=== PATIENT | female | born 1990 | race American Indian/Alaskan Native ===

== ENCOUNTER 2018-07-02 01:46 | Inpatient (IN) | payer MEDICAID ==
[2018-07-02] MEDS ORDERED: MAGNESIUM SULFATE 40GM/1000ML 40 GM/1,000 ML BAG IV ONE (02:02)
[2018-07-02] MEDS ORDERED: LACTATED RINGERS 1,000 ML ONE (02:02)
[2018-07-02] MEDS: LACTATED RINGERS 1,000 ML IV SCH (02:10)
[2018-07-02] MEDS ORDERED: BENADRYL PO PRN (02:25)
[2018-07-02] MEDS ORDERED: POLYCILLIN/NS 2 GM/100 ML 2 GM/100 ML BAG IV ONE (02:25)
[2018-07-02] MEDS ORDERED: SUBLIMAZE IV ONE (02:25)
[2018-07-02] MEDS ORDERED: MYLICON PO PRN (02:25)
[2018-07-02] MEDS ORDERED: AMBIEN PO PRN (02:25)
[2018-07-02] MEDS ORDERED: ZOFRAN IV PRN (02:25)
[2018-07-02] MEDS ORDERED: MILK OF MAGNESIA PO PRN (02:25)
[2018-07-02] MEDS ORDERED: COLACE PO PRN (02:25)
[2018-07-02] MEDS ORDERED: TYLENOL PO PRN (02:25)
[2018-07-02] MEDS ORDERED: GUAIFENESIN DM SYRUP PO PRN (02:25)
[2018-07-02] MEDS ORDERED: SUBLIMAZE ONE (02:32)
--- NOTE | 2018-07-02 02:46 | History and Physical Report ---
History of Present Illness Date of examination: 07/02/18 Date of admission: 07/02/18 01:46 Chief complaint: Labor History of present illness: The 28-year-old female [address] para [address] Moises Means has been evaluated at the [facility]. She's known twin gestation with an EDC of 08/14/2018 that places her at 33 weeks and 6 days gestation. She gives a history of contractions that started yesterday morning and became less worse throughout the day. She presented she [facility] for evaluation where she was noted initially to be 2 cm. During her evaluation she progressed to 3-4 cm. Because [place] is a level II nursery and her provider has privileges here at [facility], after consultation with her traffic controller cable the decision was made to transfer her for further management of labor. 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: denies: abnormal PAP smear, chlamydia, gonorrhea, hepatitis B, hepatitis C, herpes, HIV, syphilis, trichomonas Social history: no significant social history - Obstetrical History Expected Date of Delivery: 08/14/18 Actual Gestation: 33 Week(s) 6 Day(s) : 3 Medications and Allergies Allergies Allergy/AdvReac Type Severity Reaction Status Date / Time No Known Allergies Allergy Verified 07/02/18 02:37 Active Meds: Active Medications Acetaminophen (Tylenol) 650 mg PO Q6H PRN PRN Reason: Pain MILD(1-3)/Fever >100.5/CHAVIRA Betamethasone Acet/Betameth SodPhos (Celestone Soluspan) 12 mg IM Q24HR MILTON Stop: 07/03/18 22:31 Diphenhydramine HCl (Benadryl) 25 mg PO Q6H PRN PRN Reason: Itching Docusate Sodium (Colace) 100 mg PO Q12H PRN PRN Reason: Constipation Guaifenesin (Guaifenesin Dm Syrup) 10 ml PO Q6H PRN PRN Reason: Cough Ampicillin Sodium (Ampicillin/Ns 1 Gm/50 Ml) 1 gm in 50 mls @ 100 mls/hr IV Q4HR MILTON; Protocol Ampicillin Sodium (Polycillin/Ns 2 Gm/100 Ml) 2 gm in 100 mls @ 100 mls/hr IV ONCE ONE; Protocol Stop: 07/02/18 03:24 Lactated Ringer's (Lactated Ringers) 1,000 mls @ 125 mls/hr IV DIRECT MILTON Magnesium Sulfate (Magnesium Sulfate 40gm/1000ml) 40 gm in 1,000 mls @ 50 mls/ hr IV DIRECT MILTON Magnesium Hydroxide (Milk Of Magnesia) 30 ml PO QHS PRN PRN Reason: Laxative Effect Multivitamins/Iron/Calcium ( Vitamin) 1 each PO QDAY MILTON Ondansetron HCl (Zofran) 4 mg IV Q6H PRN PRN Reason: Nausea And Vomiting Simethicone (Mylicon) 80 mg PO Q6H PRN PRN Reason: Gas pain Zolpidem Tartrate (Ambien) 10 mg PO ONCE PRN PRN Reason: Sleep Review of Systems All systems: negative Genitourinary: contractions - Vital Signs Vital signs: Vital Signs Temp Pulse Resp BP Pulse Ox 97.7 F 105 H 18 120/68 96 07/02/18 02:37 07/02/18 02:37 07/02/18 02:37 07/02/18 02:37 07/02/18 02:37 Temp Pulse Resp BP Pulse Ox 97.7 F 105 H 18 120/68 96 07/02/18 02:37 07/02/18 02:37 07/02/18 02:37 07/02/18 02:37 07/02/18 02:37 - Physical Exam Breasts: Positive: deferred Cardiovascular: Regular rate Lungs: Positive: Clear to auscultation, Normal air movement Abdomen: Positive: soft. Negative: tenderness Vulva: both: normal - Obstetrical FHR: category 1 Uterine Contraction Monitor Mode: External Cervical Dilatation: 3.5 Cervical Effacement Percentage: 50 station: -1 Uterine Contraction Pattern: Irregular Results All other labs normal. Assessment and Plan - Patient Problems (1) 33 weeks gestation of Current Visit: Yes Status: Acute (2) Twin gestation in third trimester Current Visit: Yes Status: Acute Plan to address problem: Continue MgSO4. Will attempt to obtain the US report from [facility] Will give 2nd steriod dose tonight (3) labor in third trimester Current Visit: Yes Status: Acute
[2018-07-02] MEDS ORDERED: MAGNESIUM SULFATE 40GM/1000ML 40 GM/1,000 ML BAG IV SCH (03:00)
[2018-07-02 03:38] LABS: Hematocrit 28.8 % (30.3-42.9); Hemoglobin 9.1 gm/dl (10.1-14.3); Mean Corpuscular HGB Conc 32 % (30-34); Platelet Count 346 K/mm3 (140-440)
[2018-07-02 03:40] LABS: Mean Corpuscular Hemoglobin 22 pg (28-32); Mean Corpuscular Volume 68 fl (79-97); Red Cell Distribution Width 24.7 % (13.2-15.2)
[2018-07-02] MEDS ORDERED: BRETHINE SUB-Q PRN (04:25)
[2018-07-02 04:30] LABS: Hepatitis C Virus Antibody Non-Reactive (NonReactive)
[2018-07-02] MEDS ORDERED: BRETHINE ONE (04:31)
[2018-07-02] MEDS ORDERED: STADOL IV ONE (05:00)
[2018-07-02] MEDS ORDERED: STADOL ONE (05:11)
[2018-07-02 05:21] LABS: Rubella IgG Antibody Immune (Immune)
[2018-07-02] MEDS: AMPICILLIN/NS 1 GM/50 ML 1 GM/50 ML BAG IV SCH ×6 (05:21→23:00)
[2018-07-02] MEDS ORDERED: STADOL IV PRN (05:30)
[2018-07-02] MEDS: PRENATAL VITAMIN PO SCH (10:28)
--- NOTE | 2018-07-02 13:25 | Event Note ---
Date: 07/02/18 S: 28yo at 33 6/7weeks, twin gestation, undergoing evaluation for labor s/p betamethasone x 1, next dose 10pm. On magnesium sulfate for neuroprotection and ampicillin for GBS prophylaxis. Currently being evaluated for spontaneous rupture of membranes. She complained of a leakage of fluid and nitrazine was equivocal. Cultures for Gonorrhea, Chlamydia were collected and GBS cultures are pending. O: Cervix /70/-2 FHT 130s Twin A 130 Twin B Category I - both twins A Twin gestation Category I FHT - both twins Malpresentation - Twin B Anemia of Leukocytosis - likely due to betamethasone Anemia of - asymptomatic P Evaluate for SROM - repeat US ZOHREH Twin A/B. Continue magnesium sulfate. Next betamethasone due ~10pm. Monitor for cervical change. Consented for primary section - consent in chart. If SROM confirmed or cervical change-active labor will proceed to primary section.
--- NOTE | 2018-07-02 16:04 | Ultrasound Report ---
FINAL REPORT PROCEDURE: US OB LIMITED TECHNIQUE: Real-time limited sonographic examination was performed for evaluation of amniotic fluid volume for each fetus with image documentation (1 or more fetuses). CPT 66767 HISTORY: Check ZOHREH twin A, twin B COMPARISON: No prior studies are available for comparison. FINDINGS: FETUS A Position: Cephalic. Amniotic fluid volume: Deepest vertical pocket measures 3.7 centimeters Heart rate and rhythm: 127 BPM, Regular . Fetus B Position: Transverse, head at the maternal left. Amniotic fluid volume: Deepest vertical pocket measures 6.0 centimeters Heart rate and rhythm: 135 BPM, Regular . IMPRESSION: Twin A deepest vertical pocket of amniotic fluid measures 3.7 centimeters. Twin B deepest vertical pocket of amniotic fluid measures 6.0 centimeters.
[2018-07-02] MEDS ORDERED: PEPCID IV SCH (20:30)
[2018-07-02] MEDS ORDERED: CELESTONE SOLUSPAN IM ONE ×2 (22:59→23:30)
[2018-07-03] MEDS: AMPICILLIN/NS 1 GM/50 ML 1 GM/50 ML BAG IV SCH ×4 (02:37→14:33)
--- NOTE | 2018-07-03 07:04 | Event Note ---
Date: 07/03/18 HOSPITAL DAY #2 35yo , 34 weeks, surrogate /IVF, twin , labor s/p bethamethsone, magnesium sulfate. Dilated 4cm Stable - contractions subsided. O: Twin A FHT 120 Twin B FHT 120 One variable decel Twin A ~420am A PTL/twins P Spoke with Dr. Montalvo - maternal medicine, [facility]. He was able to find US of patient confirming SHMUEL 08/14/18, 34 weeks. His recommendation is if patient is in labor to proceed to delivery, in this case, due to malpresentation via section. Repeat US for ZOHREH today in light of complaint of loss of fluid, equivocal nitrazine strip.
[2018-07-03 07:36] LABS: Hematocrit 25.5 % (30.3-42.9); Hemoglobin 7.9 gm/dl (10.1-14.3); Mean Corpuscular HGB Conc 31 % (30-34); Platelet Count 352 K/mm3 (140-440); Red Blood Count 3.71 M/mm3 (3.65-5.03)
[2018-07-03 07:43] LABS: Mean Corpuscular Hemoglobin 21 pg (28-32); Mean Corpuscular Volume 69 fl (79-97); Red Cell Distribution Width 25.3 % (13.2-15.2)
[2018-07-03] MEDS: LACTATED RINGERS 1,000 ML IV SCH ×2 (07:53→17:42)
--- NOTE | 2018-07-03 09:36 | Ultrasound Report ---
FINAL REPORT EXAM: US OB LIMITED HISTORY: ZOHREH-twins TECHNIQUE: Transabdominal OB ultrasound. PRIORS: None currently available. FINDINGS: Twin intrauterine pregnancies. TWIN A: heart rate: 137 BPM. Amniotic fluid index: Largest vertical pocket measures 2.4 cm. Within normal limits. Movement of the extremities and heart noted. TWIN B: heart rate: 141 BPM. Amniotic fluid index: Largest vertical pocket measures 7.2 cm. Within normal limits. IMPRESSION: Twin live intrauterine pregnancies.
[2018-07-03] MEDS ORDERED: CELESTONE SOLUSPAN IM SCH (22:30)
[2018-07-03] MEDS ORDERED: NACL 0.9% 500 ML 500 ML IV ONE (23:56)
--- NOTE | 2018-07-04 00:16 | Progress Note ---
Assessment and Plan - Patient Problems (1) labor in third trimester Current Visit: Yes Status: Acute Plan to address problem: No cervical change-4cm FHT reassuring Expectant management. If signs of twin distress or progression of labor will proceed to primary section Consent signed and in chart. Subjective - Subjective Date of service: 07/04/18 Patient reports: other (States loss of fluid stopped after de la o catheter removed. ) Objective - Vital Signs Vital Signs: Vital Signs - 12hr 07/03/18 07/03/18 07/03/18 13:00 14:00 14:51 Temperature 98.3 F Pulse Rate 103 H 89 90 Respiratory 18 16 Rate Blood Pressure 116/66 130/63 126/79 [Right] 07/03/18 07/03/18 07/03/18 16:00 16:26 17:00 Temperature Pulse Rate Respiratory 16 16 18 Rate Blood Pressure 115/67 132/82 [Right] 07/03/18 07/03/18 07/03/18 17:28 18:08 19:08 Temperature 98.5 F Pulse Rate Respiratory 18 16 20 Rate Blood Pressure 126/72 118/64 [Right] 07/03/18 23:33 Temperature 98.3 F Pulse Rate Respiratory 20 Rate Blood Pressure 118/67 [Right] - Exam FHR: category 1 FHR comments: Twin A mod variability Twin B moderate variability Cervical Dilatation: 4 Cervical Effacement Percentage: 70 station: -3 Uterine Contraction Pattern: Irregular - Labs Labs: Abnormal Labs 07/02/18 07/02/18 07/02/18 03:17 03:17 03:18 WBC 18.4 H Hgb 9.1 L Hct 28.8 L MCV 68 L MCH 22 L RDW 24.7 H Magnesium 3.20 H Crossmatch See Detail 07/02/18 07/02/18 07/03/18 08:24 23:17 07:24 WBC 18.8 H Hgb 7.9 L Hct 25.5 L MCV 69 L MCH 21 L RDW 25.3 H Magnesium 4.80 H 4.70 H Crossmatch Laboratory Results - last 24 hr 07/02/18 07/03/18 03:18 07:24 WBC 18.8 H RBC 3.71 Hgb 7.9 L Hct 25.5 L MCV 69 L MCH 21 L MCHC 31 RDW 25.3 H Plt Count 352 Crossmatch See Detail
[2018-07-04] MEDS ORDERED: STADOL ONE (01:18)
[2018-07-04] MEDS ORDERED: BICITRA PO ONE (01:36)
[2018-07-04] MEDS ORDERED: PEPCID IV ONE (01:36)
[2018-07-04] MEDS ORDERED: REGLAN IV ONE (01:36)
--- NOTE | 2018-07-04 01:43 | Event Note ---
Date: 07/04/18 HOSPITAL DAY #3 28yo 34wks twin gestation, patient now complaining of 10/10 pain with recurrent contractions. Based on uterine contractions requiring IV sedation and advanced cervical dilation decision made to proceed to primary section. Maternal medicine has been previously consulted and recommends not stopping labor of twin gestation at 34 weeks. Neonatology aware of decision to proceed to csection.
[2018-07-04] MEDS ORDERED: LACTATED RINGERS 1,000 ML IV SCH (02:00)
[2018-07-04] MEDS ORDERED: ANCEF/STERILE WATER 2 GM/20 ML 2 GM/20 ML SYRINGE IV NR (02:00)
[2018-07-04] MEDS ORDERED: PITOCin/NS 20 UNIT/1000ML DRIP 20 UNITS/1,000 ML BAG IV SCH ×2 (02:00→07:00)
[2018-07-04] MEDS ORDERED: NEO SYNEPHRINE/NS Syringe(OR USE) IV ONE (02:32)
[2018-07-04] MEDS ORDERED: XYLOCAINE MPF 2% ONE ×3 (02:32→03:31)
[2018-07-04] MEDS ORDERED: NACL 0.9% IR ONE (02:50)
[2018-07-04] MEDS ORDERED: WATER FOR IRRIG STERILE IR ONE (02:50)
[2018-07-04] MEDS ORDERED: ANCEF/STERILE WATER 2 GM/20 ML IV ONE (03:00)
[2018-07-04] MEDS ORDERED: SUBLIMAZE ONE ×4 (03:01→03:42)
[2018-07-04] MEDS ORDERED: NACL 0.9% 1000 ML 1,000 ML ONE (03:13)
[2018-07-04] MEDS ORDERED: BENADRYL ONE (04:01)
[2018-07-04] MEDS ORDERED: TORADOL ONE (04:02)
[2018-07-04] MEDS ORDERED: NORCO 5/325 PO PRN (06:27)
[2018-07-04] MEDS ORDERED: TORADOL IV PRN (06:27)
[2018-07-04] MEDS ORDERED: LANSINOH TP PRN (06:27)
[2018-07-04] MEDS ORDERED: TUCKS PAD TP PRN (06:27)
[2018-07-04] MEDS ORDERED: NARCAN 0.4 MG/1 ML IV PRN (06:27)
--- NOTE | 2018-07-04 06:44 | Procedure Note ---
OB Delivery Note - Section Preop diagnosis: other malpresentation, other (See op report) Postop diagnosis: other (See op report) section procedure: section, primary low transverse Disposition: PACU Complications: none - A at 1 minute: 8 at 5 minutes: 9 Infant Gender: Male (4lb 15.5oz, 2256g, vertex presentation) B at 1 minute: 8 at 5 minutes: 9 Infant Gender: Female (5lb 2273g, breech presentation)
--- NOTE | 2018-07-04 06:47 | Operative Report ---
Operative Report Operative Report: PREOP Diagnosis 1. 34 weeks twin gestation 2. Malpresentation, Twin B 3. Active labor 4. Anemia of POSTOP Diagnosis 1. 34 weeks twin gestation 2. Malpresentation, Twin B 3. Active labor 4. Anemia of Procedure: Primary low-transverse section Findings 1. Twin A: Viable male in the vertex presentation, weighing 4lb 15.5oz APGARS 8 at 1 min, 9 at 5 min Twin B: Viable female in the shaheed breech presentation, weighing 5lb APGARS 8 at 1 min, 9 at 5 min 2. Normal bilateral ovaries and tubes. Surgeon 1. Jerrica Bain MD Anesthesia: 1. Epidural I/O: EBL: 800ml UOP 100ml, clear at close of case IVF 2000ml LR Tranfused 2units packed red blood cells Specimens removed: 1. Placenta Complications: none Disposition: Patient taken to recovery room in stable condition INDICATIONS: The patient is a 28yo at 34 weeks that was being observed for progression of labor. She was in active labor dilated 4cm with painful Q 1 min painful uterine contractions so the decision was made to proceed to primary section based on malpresentation of twin B. She previously received steroids for lung maturity this admission. The patient was consented and the risks including but not limited to bleeding, infections, injury to surrounding organs, need for blood transfusion or hysterectomy and potential injury to mother/ were discussed. All questions were answered and informed consent signed. PROCEDURE: The patient was taken to the OR in stable condition. Adequate anesthesia was achieved with epidural anesthesia. A de la o catheter was placed. She wore SCDs for DVT prophylaxis. heart tones were confirmed in the OR to be 140s for Twin A and 130s for Twin B. She was type & crossmatched for 2 units pack red bloods. The patient was prepped and draped in the usual fashion and an additional time out was done. She received Ancef for infection prophylaxis. A Pfannestiel incision was made in the skin over previous scar. The fascia was excised and the superior and inferior aspect of the rectus muscle was dissected off of the fascia. Entry into the peritoneum was achieved and incision extended. A bladder blade was placed and vesicouterine peritoneum was dissected off the lower uterine segment. An Jaun O-rectractor was placed. A low-transverse incision made made in the uterus and extended. membranes were ruptured and noted to have light meconium. head was brought to the hysterotomy, nuchal cord x 1 reduced and body delivered. The Infant was bulb suctioned. Cord clamped x 2, cord blood was collected. The placenta was delivered intact. 20 units of IV Pitocin were added to LR fluids. The uterus was cleaned of all clots. The uterus was repaired with 0-Vicryl in a running, locked stitch and an imbricating layer of the same suture was used. The peritoneal cavity was noted to be free of clots. The peritoneum and rectus muscle were re-approximated with 2-0Vicryl. Fascia closed with 0 Vicryl. Subcutaneous layer reapproximated with 2-0 Vicryl. Skin closed with 4-0 Vicryl. The patient tolerated the procedure well. All counts were correct x 3. Urine was noted to be clear at close of case. I was present and scrubbed for the entire procedure.
[2018-07-04] MEDS ORDERED: SODIUM CHLORIDE FLUSH SYRINGE 10 ML IV NR (07:00)
[2018-07-04] MEDS ORDERED: FEOSOL PO SCH (08:00)
[2018-07-04 09:17] LABS: Hematocrit 27.1 % (30.3-42.9); Hemoglobin 8.6 gm/dl (10.1-14.3)
[2018-07-04] MEDS: PRENATAL VITAMIN PO SCH (11:19)
[2018-07-04] MEDS: FEOSOL PO SCH (11:19)
[2018-07-04] MEDS: NORCO 5/325 PO PRN ×2 (15:54→22:22)
[2018-07-04 21:26] LABS: Hematocrit 30.9 % (30.3-42.9); Hemoglobin 9.8 gm/dl (10.1-14.3)
[2018-07-05] MEDS: NORCO 5/325 PO PRN ×3 (04:09→21:40)
--- NOTE | 2018-07-05 11:52 | Progress Note ---
Assessment and Plan - Patient Problems (1) Status post Onset Date: 07/05/18 Current Visit: Yes Status: Resolved Plan to address problem: A: S/P C Section - POD #1 Doing well Acute blood loss anemia - resolved with blood transfusion P: Continue RPOC Anticipated discharge in 24-48hrs (2) Acute blood loss anemia Onset Date: 07/05/18 Current Visit: Yes Status: Resolved Subjective - Subjective Date of service: 07/05/18 Principal diagnosis: s/p C Section - POD #1 Interval history: Pt is feeling well without complaints. Bleeding improved. She is tolerating a reg diet without nausea or vomiting, ambulating and voiding without difficulty. Patient reports: appetite normal, voiding normally, pain well controlled, flatus , ambulating normally, no dizzy ambulation, no nauseated : doing well, in NICU Objective - Vital Signs Latest vital signs: Vital Signs Temp Pulse Resp BP Pulse Ox 07/05/18 08:01 61 99 07/05/18 07:30 98.6 F 70 18 114/70 99 07/05/18 00:00 98.4 F 74 18 117/78 07/04/18 20:00 99 F 84 16 108/64 07/04/18 18:00 98.8 F 77 16 112/65 Intake and Output 07/04/18 07/05/18 07/05/18 22:59 06:59 14:59 Intake Total 300 600 360 Output Total 2000 Balance -1700 600 360 Intake: Oral 360 Intake, Free Water 300 600 Output: Urine 2000 Indwelling Catheter 1600 Void 400 Other: Total, Intake Amount 360 Total, Output Amount 200 # Voids Indwelling Catheter 1 Void 1 # Bowel Movements 1 - Exam Breasts: Present: deferred Cardiovascular: Present: Regular rate Lungs: Present: Clear to auscultation Abdomen: Present: normal appearance, soft Uterus: Present: normal, firm, fundal height below umbilicus Extremities: Present: normal Incision: Present: normal, dry, intact, dressed - Labs Labs: Abnormal lab results 07/02/18 07/04/18 Range/Units 03:18 20:39 Hgb 9.8 L (10.1-14.3) gm/dl Crossmatch See Detail Laboratory Tests 07/02/18 07/02/18 07/02/18 03:17 03:17 03:17 WBC 18.4 H RBC 4.20 Hgb 9.1 L Hct 28.8 L MCV 68 L MCH 22 L MCHC 32 RDW 24.7 H Plt Count 346 Magnesium RPR Hep Bs Antigen Non-reactive Hepatitis C Antibody Non-reactive HIV 1&2 Antibody Rapid Non react HIV P24 Antigen Non react Rubella IgG Antibody Immune Blood Type Antibody Screen Crossmatch 07/02/18 07/02/18 07/02/18 03:17 03:17 03:18 WBC RBC Hgb Hct MCV MCH MCHC RDW Plt Count Magnesium 3.20 H RPR Nonreactive Hep Bs Antigen Hepatitis C Antibody HIV 1&2 Antibody Rapid HIV P24 Antigen Rubella IgG Antibody Blood Type O POSITIVE Antibody Screen Negative Crossmatch See Detail 07/02/18 07/02/18 07/03/18 08:24 23:17 07:24 WBC 18.8 H RBC 3.71 Hgb 7.9 L Hct 25.5 L MCV 69 L MCH 21 L MCHC 31 RDW 25.3 H Plt Count 352 Magnesium 4.80 H 4.70 H RPR Hep Bs Antigen Hepatitis C Antibody HIV 1&2 Antibody Rapid HIV P24 Antigen Rubella IgG Antibody Blood Type Antibody Screen Crossmatch 07/04/18 07/04/18 08:58 20:39 WBC RBC Hgb 8.6 L 9.8 L Hct 27.1 L 30.9 MCV MCH MCHC RDW Plt Count Magnesium RPR Hep Bs Antigen Hepatitis C Antibody HIV 1&2 Antibody Rapid HIV P24 Antigen Rubella IgG Antibody Blood Type Antibody Screen Crossmatch
[2018-07-05] MEDS: FEOSOL PO SCH (17:30)
[2018-07-05] MEDS: PRENATAL VITAMIN PO SCH (17:30)
[2018-07-05] MEDS: MOTRIN PO PRN (21:40)
[2018-07-06] MEDS: NORCO 5/325 PO PRN (04:14)
[2018-07-06] MEDS: MOTRIN PO PRN (04:14)
--- NOTE | 2018-07-06 08:54 | Progress Note ---
Assessment and Plan - Patient Problems (1) Status post Onset Date: 07/05/18 Current Visit: Yes Status: Resolved Plan to address problem: A: S/P C Section - POD #2 Doing well Asymptomatic anemia - stable P: May go home today (2) Acute blood loss anemia Onset Date: 07/05/18 Current Visit: Yes Status: Resolved Subjective - Subjective Date of service: 07/06/18 Principal diagnosis: s/p C Section - POD #2 Interval history: Pt is feeling well without complaints. She is tolerating a reg diet without nausea or vomiting, ambulating and voiding without difficulty. Wants to go home. Patient reports: appetite normal, voiding normally, pain well controlled, flatus , ambulating normally, no dizzy ambulation, no nauseated [place]: doing well, in NICU Objective - Vital Signs Latest vital signs: Vital Signs Temp Pulse Resp BP BP Pulse Ox 07/06/18 00:00 98.7 F 77 16 112/69 07/05/18 16:03 91 H 98/64 100 07/05/18 16:02 98.5 F 95 H 18 98/64 100 Intake and Output 07/05/18 07/06/18 07/06/18 22:59 06:59 14:59 Intake Total 300 500 Output Total 4 Balance 296 500 Intake: Oral 200 Intake, Free Water 300 300 Output: Urine 4 Void 4 Other: Total, Intake Amount 200 Total, Output Amount 4 # Voids Void 4 - Exam Breasts: Present: deferred Abdomen: Present: normal appearance, soft Uterus: Present: normal, firm, fundal height below umbilicus Extremities: Present: normal Incision: Present: normal, dry, intact
--- NOTE | 2018-07-06 09:24 | Discharge Summary ---
Providers - Providers Date of Admission: 07/02/18 01:46 Date of discharge: 07/06/18 Attending physician: SATNAM HU 07/03/18 04:46 Consult to Physician [CONS] Urgent Comment: Consulting Provider: YAZAN THORNTON Physician Instructions: Please advise on timing of delivery Reason For Exam: labor, twin gestation, dilated 4cm Primary care physician: SATNAM HU Hospitalization Reason for admission: IUP - , labor Delivery: Procedure: section, primary low transverse Episiotomy: none Incision: normal, dry, intact Other procedures: none complications: none Discharge diagnosis: delivery [place] baby: twins Hospital course: Pt is a 28-year-old female 3 para 2002 patient of [facility] with twin gestation with an EDC of 08/14/2018 that placed her at 33 weeks and 6 days gestation. She gave a history of contractions that worsened throughout the day. She presented to [facility] for evaluation where she was noted initially to be 2 cm and she progressed to 3- 4 cm. Because [place] is a level II nursery she was transferred to [facility] for further management of labor. She complained of 10/10 pain with recurrent contractions. Based on uterine contractions requiring IV sedation and advanced cervical dilation, the decision made to proceed to primary section. Maternal medicine has been previously consulted and recommended not stopping labor of twin gestation at 34 weeks. She was therefore delivered by uncomplicated C Section. Post operative course was unremarkable, and by POD #2 she was tolerating a reg diet without nausea or vomiting, ambulating and voiding without difficulty. She was therefore discharged to home on POD #2 in stable condition. Condition at discharge: Good Disposition: DC-01 TO HOME OR SELFCARE - Discharge Diagnoses (1) Status post Status: Resolved (2) Acute blood loss anemia Status: Resolved Plan - Discharge Medications Prescriptions: Ferrous Sulfate [Feosol 325 MG tab] 325 mg PO BID #60 tablet HYDROcodone/APAP 5-325 [Jerome 5/325] 1 each PO Q6HR PRN #30 tablet PRN Reason: Pain Ibuprofen [Motrin] 800 mg PO Q8HR PRN #20 tablet PRN Reason: Pain, Moderate (4-6) Ibuprofen [Motrin 800 MG tab] 800 mg PO Q6H PRN #30 tablet PRN Reason: Pain, Mild (1-3) oxyCODONE /ACETAMINOPHEN [Percocet 5/325] 1 tab PO Q4HR #14 tab Vit-Fe Fumar-FA [ Vitamin] 1 each PO QDAY #30 tablet - Provider Discharge Summary Activity: routine, no sex for 6 weeks, no heavy lifting 4 weeks, no strenuous exercise Diet: routine Instructions: routine Additional instructions: [] Smoking cessation referral if applicable(refer to patient education folder for contact #) [] Refer to [facility]'s [facility] Booklet Call your doctor immediately for: * Fever > 100.5 * Heavy vaginal bleeding ( >1 pad per hour) * Severe persistent headache * Shortness of breath * Reddened, hot, painful area to leg or breast * Drainage or odor from incision. * Keep incision clean and dry at all times and follow doctor's instructions regarding bathing/showering - Follow up plan Follow up: SATNAM HU MD [Primary Care Provider] - 14 Days RICARDO CHAVARRIA CNM [Advanced Practice Nurse] - 14 Days
[2018-07-06 09:51] VITALS: BP 114/78
== END 2018-07-06 10:00 | disposition home or self-care (01) | DRG 765 ==
LOC: LD 01:46 → OB 07-04 06:27
PROVIDERS: ADMIT Obstetrics & Gynecology; ATTEND Obstetrics & Gynecology
PROC: 30233N1 Transfusion of Nonautologous Red Blood Cells into Peripheral Vein, Percutaneous Approach (ICD-10-PCS; 2018-07-03)
PROC: 10D00Z1 Extraction of Products of Conception, Low, Open Approach (ICD-10-PCS; principal; 2018-07-04)
DX: O60.14X1 Preterm labor third trimester with preterm delivery third trimester, fetus 1 (principal); D62 Acute posthemorrhagic anemia; O32.1XX2 Maternal care for breech presentation, fetus 2; O60.14X2 Preterm labor third trimester with preterm delivery third trimester, fetus 2; Z37.2 Twins, both liveborn; Z3A.33 33 weeks gestation of pregnancy; O99.02 Anemia complicating childbirth; O30.003 Twin pregnancy, unspecified number of placenta and unspecified number of amniotic sacs, third trimester
CPT/HCPCS: 36415; 76815; 83735; 85014; 85018; 85027; 86592; 86706; 86762; 86803; 86850; 86900; 86901; 86920; 87116; 87591; 87806; 88307; 99211; G0463; J0290; J0595; J0690; J0702; J1200; J1885; J2370; J2405; J2590; J2765; J3010; J3105; J3475; J7030; J7120; P9016